=== PATIENT | female | born 1985 | race Caucasian/White ===

== ENCOUNTER 2016-11-28 06:10 | Inpatient (IN) | payer OTHER ==
[~2016-11-28] VITALS: Ht 162.6 cm; Wt 70.0 kg
[~2016-11-28 06:10] MED LIST: ACET325T26 PO; IBUP-1222 PO; OXYC-302 PO; PREN1TAB27 PO
[2016-11-28] MEDS ORDERED: LACTATED RINGERS 1,000 ML IV SCH ×2 (06:18→18:51)
[2016-11-28] MEDS ORDERED: D5%-LACTATED RINGERS 1,000 ML IV SCH (06:18)
[2016-11-28] MEDS ORDERED: OXYTOCIN 30U/ 0.9% NaCL 500ML 500 ML IV PRN (06:18)
[2016-11-28] MEDS ORDERED: OXYTOCIN 30U/ 0.9% NaCL 500ML 500 ML IV ONE (06:18)
[2016-11-28] MEDS ORDERED: ONDANSETRON 2MG/ML, 2ML IVPush PRN (06:30)
[2016-11-28] MEDS ORDERED: FENTANYL PF 100 MCG/2ML IVPush PRN (06:30)
[2016-11-28] MEDS ORDERED: FENTANYL PF 100 MCG/2ML IV PRN (06:30)
[2016-11-28] MEDS ORDERED: CALCIUM CARBONATE 500 MG TAB.CHEW PO PRN ×2 (06:30→18:00)
[2016-11-28] MEDS ORDERED: NEWBORN KIT ONE (06:46)
[2016-11-28] MEDS ORDERED: MISOPROSTOL 200 MCG TABLET ONE (06:47)
[2016-11-28] MEDS ORDERED: OXYTOCIN 30U/ 0.9% NaCL 500ML 500 ML ONE ×2 (06:47→19:10)
[2016-11-28] MEDS ORDERED: LIDOCAINE 1%, 20ML ONE (06:47)
[2016-11-28 06:56] LABS: HEMATOCRIT 36.1 % (34.6-47.8); HEMOGLOBIN 11.7 g/dL (11.7-16.4); WHITE BLOOD COUNT 11.2 x10^3/uL (3.4-10)
[2016-11-28 07:12] VITALS: BP 104/62
[2016-11-28] MEDS ORDERED: FENTANYL/BUPIV./NS/PF 250 ML EPIDCONT ONE (09:53)
[2016-11-28] MEDS: OXYTOCIN 30U/ 0.9% NaCL 500ML 500 ML IV SCH (17:32)
[2016-11-28] MEDS ORDERED: MISOPROSTOL 200 MCG TABLET PR PRN (18:00)
[2016-11-28] MEDS ORDERED: RHOGAM FROM BLOOD BANK 1 NOTE EA IM/IV ONE (18:00)
[2016-11-28] MEDS ORDERED: HYDROcodone/APAP 5/325 TABLET PO PRN (18:00)
[2016-11-28] MEDS ORDERED: ONDANSETRON 2MG/ML, 2ML IV PRN (18:00)
[2016-11-28] MEDS ORDERED: HYDROcodone/APAP 5/325 TABLET ONE (18:22)
[2016-11-28] MEDS ORDERED: IBUPROFEN 600 MG TABLET ONE (18:22)
[2016-11-28] MEDS: HYDROcodone/APAP 5/325 TABLET PO PRN ×2 (18:25→22:50)
[2016-11-28] MEDS: IBUPROFEN 600 MG TABLET PO PRN (18:25)
[2016-11-28] MEDS ORDERED: FENTANYL/BUPIV./NS/PF 250 ML EPIDCONT SCH (18:51)
[2016-11-28] MEDS ORDERED: LACTATED RINGERS 1,000 ML IVBOLUS PRN (19:00)
[2016-11-28 19:40] VITALS: BP 100/60
[2016-11-28 21:00] VITALS: BP 100/78
[2016-11-28] MEDS: DOCUSATE 100 MG CAPSULE PO PRN (21:33)
[2016-11-28 23:50] VITALS: BP 98/51
[2016-11-29] MEDS: IBUPROFEN 600 MG TABLET PO PRN ×3 (01:01→14:10)
[2016-11-29 01:11] LABS: HEMATOCRIT 34.3 % (34.6-47.8); WHITE BLOOD COUNT 15.3 x10^3/uL (3.4-10)
[2016-11-29] MEDS: HYDROcodone/APAP 5/325 TABLET PO PRN ×4 (03:04→17:52)
[2016-11-29] MEDS: OXYTOCIN 30U/ 0.9% NaCL 500ML 500 ML IV SCH ×2 (03:32→13:32)
[2016-11-29 03:33] VITALS: BP 100/57
[2016-11-29 07:10] VITALS: BP 99/61
[2016-11-29] MEDS: DOCUSATE 100 MG CAPSULE PO PRN (07:45)
[2016-11-29] MEDS ORDERED: PRENATAL VIT/IRON/FA 1 EACH TABLET PO SCH (09:00)
[2016-11-29 12:05] VITALS: BP 107/67
[2016-11-29] MEDS ORDERED: IBUP-1223 PO (13:04)
[2016-11-29] MEDS ORDERED: HYDR-3240 PO (13:04)
[2016-11-29] MEDS ORDERED: DOCU-131 PO (13:05)
[2016-11-29 16:20] VITALS: BP 110/69
== END 2016-11-29 18:20 | disposition home or self-care (01) | DRG 775 ==
LOC: LDIP 06:10 → 2NW 19:35
PROVIDERS: ADMIT Obstetrics & Gynecology; ATTEND Obstetrics & Gynecology
PROC: 0HQ9XZZ Repair Perineum Skin, External Approach (ICD-10-PCS; principal; 2016-11-28)
PROC: 10E0XZZ Delivery of Products of Conception, External Approach (ICD-10-PCS; 2016-11-28)
PROC: 3E0S3CZ (ICD-10-PCS; 2016-11-28)
PROC: 00HU33Z Insertion of Infusion Device into Spinal Canal, Percutaneous Approach (ICD-10-PCS; 2016-11-28)
DX: O70.0 First degree perineal laceration during delivery (principal); Z37.0 Single live birth; Z3A.39 39 weeks gestation of pregnancy
CPT/HCPCS: 36415; 85025; 85461; 86850; 86900; J2790; J2590; J7120